=== PATIENT | female | born 1980 | race Caucasian/White ===

== ENCOUNTER 2020-02-16 00:44 | Outpatient (CLI) | payer BC, SELFPAY ==
[2020-02-16 17:26] LABS: SARS-CoV-2 RNA PCR Negative
== END 2020-02-16 00:45 | disposition home or self-care (01) ==
LOC: ANHCOVIDDT 00:44
PROVIDERS: PCP Family Medicine; Visit Provider Student in an Organized Health Care Education/Training Program
DX: Z01.812 Encounter for preprocedural laboratory examination (principal); Z20.828 Contact with and (suspected) exposure to other viral communicable diseases
CPT/HCPCS: 87635; C9803; U0003

== ENCOUNTER 2020-02-16 09:02 | Outpatient (CLI) | payer BC, SELFPAY ==
--- NOTE | 2020-02-16 | ECG_ITS ---
Measurements Intervals [place] Rate: 74 P: 4 PA: 151 QRS: 50 QRSD: 89 T: 42 QT: 382 QTc: 424 Interpretive Statements SINUS RHYTHM DELAYED PRECORDIAL R/S TRANSITION BASELINE ARTIFACT- I, II, III BORDERLINE ECG Electronically Signed On 02-16-2020 10:12:53 CDT by Ascencion Adame D.O.
[2020-02-16 10:07] LABS: Hematocrit 38.6 % (37.0-47.0)
== END 2020-02-16 09:03 | disposition home or self-care (01) ==
LOC: ANHLAB 09:03
PROVIDERS: PCP Family Medicine; Visit Provider Student in an Organized Health Care Education/Training Program
DX: N93.9 Abnormal uterine and vaginal bleeding, unspecified (principal); Z01.818 Encounter for other preprocedural examination; R94.31 Abnormal electrocardiogram [ECG] [EKG]
CPT/HCPCS: 36415; 85014; 85018; 93005

== ENCOUNTER 2020-02-18 01:03 | Day surgery (SDC) | payer BC, SELFPAY ==
[2020-02-11 15:38] VITALS: BMI 31.8
[2020-02-18 10:00] VITALS: BP 137/88; PULSE 72; RESP 18; TEMP 36.4; O2SAT 97
--- NOTE | 2020-02-18 10:00 | PM.IMHP ---
H&P: HPI History of Present Illness Date/Time: 02/18/20 10:00 Chief complaint: irregular bleeding, uterine polyp Narrative: Daxa Downey is a 39 year old female who presents for hysteroscopy D&C for AUB. Pt initially presented with prolonged menses lasting over 2 weeks. She states her bleeding was heavy requiring a tampon change every 2 hours. Pelvic US revealed concern for possible endometrial polyp. Pt opted for surgical management for AUB via D&C. Review of Systems Cardiovascular: Cardiovascular: Denies chest pain, Denies leg edema, Denies palpitations, Denies dyspnea and Denies dyspnea on exertion Respiratory: Respiratory: Denies cough, Denies dyspnea and Denies dyspnea on exertion Gastrointestinal: Gastrointestinal: Denies abdominal pain, Denies constipation, Denies diarrhea, Denies nausea and Denies vomiting Genitourinary: Genitourinary: Denies hematuria, Denies urinary frequency, Denies dysuria, Denies pelvic pain, Denies urinary incontinence and Denies vaginal discharge Neurologic: Reports system reviewed and no additional complaints, except as documented Psychiatric: Psychiatric: Reports no additional psychiatric complaints Endocrine: Endocrine: Denies palpitations [facility] Social History Social History (System 02/11/20 @ 17:05 by Keiry Esposito) Smoking packs per day: 1 Smoking cigarettes per day: 20.0 Years smoked: 15 Smoking pack-years: 15.00 Smoking status: Current every day smoker Tobacco type: cigarettes Alcohol intake: current Drinks per week: 2 Spiritual care concerns: No Meds Home Medications and Allergies Home Medications Medication Instructions Recorded Confirmed Type lisinopril 10 mg PO DAILY 02/11/20 02/11/20 History omeprazole 40 mg PO DAILY 02/11/20 02/11/20 History Allergies Allergy/AdvReac Type Severity Reaction Status Date / Time No Known Allergies Allergy Verified 02/11/20 17:05 Exam Const: General: no acute distress Eyes: EOM: EOMs intact bilaterally Neck: Neck: supple Thyroid: thyroid normal Chest: Breast/axilla inspection: normal inspection of the breasts Breast/axilla palpation: normal palpation of the breasts, normal palpation of the axillae and no axillary lymphadenopathy Resp: Effort & Inspection: normal respiratory effort Auscultation: clear to auscultation bilaterally Cardio: Rate: regular rate Rhythm: regular rhythm GI: Inspection: non-distended GI Palp: Yes Soft to palpation, No Tenderness to palpation present (GI) and No Guarding due to palpation present (GI) Auscultation: normal bowel sounds : General: No bladder normal to palpation External Female Exam: normal external appearance Speculum Exam - Vagina: normal vaginal discharge and No vaginal bleeding Speculum Exam - Cervix: nontender Bimanual exam- vagina & uterus: No bladder normal to palpation and No Cervical tenderness present OB/external & speculum: No vaginal bleeding Skin: General skin exam: normal color and no rashes or lesions noted Neuro: Cognition (Neuro): normal cognition Speech: normal speech Extrem: General: normal to inspection and no edema Psych: Mental Status: mental status grossly normal Affect: normal affect Assessment and Plan Assessment and plan (1) Uterine polyp: Code(s): N84.0 - Polyp of corpus uteri Status: Acute Assessment and Plan: Pt presented with AUB pelvic US revealed a hyperechoic structure within the EMC measuring [id number] suspicious for an endometrial polyp management options discussed with patient including risks and benefits of each pt opted for surgical management via D&C
--- NOTE | 2020-02-18 10:04 | WPDHPUPDATE1 ---
History and Physical Update Update Date/Time: 02/18/20 10:04 History and Physical has been reviewed, including an updated exam of the patient. There are NO changes in the patient's condition. Risks, benefits, and alternatives have been discussed and questions answered. Patient agrees to proceed with procedure.
[2020-02-18] MEDS: ACETAMINOPHEN 500 MG TABLET 1000 MG PO (10:36)
[2020-02-18] MEDS: LACTATED RINGERS 1,000 ML 30 ML IV CONT (10:36)
--- NOTE | 2020-02-18 10:55 | WPDANESEPPF ---
Anes - Initial Pre Proc Eval Procedure: Operation Date: 02/18/20 12:00 Proposed Procedures p Hysteroscopy, Dilation and Curettage with Myosure - Sathish Freed MD Date/Time: 02/18/20 10:55 Surgeon: Sathish Freed MD Pre Op Diagnosis: irregular bleeding, uterine polyp Patient Data Age: 39 Gender: F Height: 5 ft 3 in Weight: 81.9 kg Last Vital Signs Temp 36.4 C L 02/18/20 10:00 Pulse 72 02/18/20 10:00 Resp 18 02/18/20 10:00 BP 137/88 02/18/20 10:00 Pulse Ox 97 02/18/20 10:00 Allergies Allergy/AdvReac Type Severity Reaction Status Date / Time No Known Allergies Allergy Verified 02/18/20 10:46 Home Medications Medication Instructions Recorded Confirmed Type lisinopril 10 mg PO DAILY 02/11/20 02/18/20 History omeprazole 40 mg PO DAILY 02/11/20 02/18/20 History Patient hx anesthesia problems: none Family hx anesthesia problems: none PMFSH Past Medical History Medical History GERD (gastroesophageal reflux disease) Hypertension ASHLEY (obstructive sleep apnea) Social History Social History Smoking packs per day: 1 Smoking cigarettes per day: 20.0 Years smoked: 15 Smoking pack-years: 15.00 Smoking status: Current every day smoker Tobacco type: cigarettes Alcohol intake: current Drinks per week: 2 Spiritual care concerns: No Anes - Eval Final PreProcedure Day of Procedure 02/18/20 10:55 Patient weight: obese Heart: regular rate and rhythm Lungs: decreased breath sounds Airway: Mallampati scale class II Neurological: alert and oriented Last oral intake: >/= 8 hours ASA classification: III Emergent: no Anesthetic plan: proceed Anesthesia type and monitoring: general GIVS and standard monitoring Informed Consent: The patient's anesthetic plan and its attendant risks and benefits were discussed with the patient/family/POA. Questions were solicited and answers provided to the satisfaction of the patient/family/POA.
--- NOTE | 2020-02-18 12:22 | PM.PROC ---
Procedure Note - Detailed Date of procedure: 02/18/20 Pre-op diagnosis: irregular bleeding, uterine polyp Post-op diagnosis: same Procedure performed: Paracervical block hysteroscopy Dilation & curettage via myosure device Description of procedure: The patient was taken to the operating room and placed under general anesthesia. The patient was placed in dorsolithotomy position, prepped and draped in the usual sterile fashion. Sterile speculum was placed in the vagina, and the cervix was grasped with a tenaculum. A paracervical block was performed. The cervix was dilated. The hysteroscope was introduced. The cervical canal was visualized and the hysteroscope was passed into the uterine cavity under direct visualization. ? The endometrial lining was visualized.?The endometrial lining was noted to be globally overgrown. There was a focal area of overgrown endometrial tissue located at the left fundus near the tubal kiah, consitent with suspected polyp on US. The Myosure device was then used to remove area of tisse and sample the endometrial lining, restoring a normal appearing endometrial cavity. The tissue was sent to pathology. ? Hemostasis was noted and the procedure was terminated. All instruments were removed from the vagina. Instrument, sharp, and sponge counts were correct. Fluid deficit was noted to be 50 mL. ? The patient tolerated the procedure well. The patient was taken to the recovery area in stable condition. Anesthesia: GLMA Surgeon: Sathish Freed MD Estimated blood loss (mL): 25 Urine output (mL): 100 Drains: No Packing: No Pathology: yes (endometrial curettings ) Complications: No immediate complications Condition: stable Disposition: PACU Findings: globally thickened endometrium with a focal area of overgrown tissue in the left fundus. normal tubal ostia bilaterally
[2020-02-18 12:26] VITALS: BP 140/91; PULSE 64; RESP 16; O2SAT 99
[2020-02-18 13:00] VITALS: BP 158/94; PULSE 59; RESP 16
== END 2020-02-18 13:30 | disposition home or self-care (01) ==
PROVIDERS: PCP Family Medicine; Visit Provider Student in an Organized Health Care Education/Training Program
PROC: 0U5B8ZZ Destruction of Endometrium, Via Natural or Artificial Opening Endoscopic (ICD-10-PCS; CPT 58563; principal; 2020-02-18 12:00)
DX: N93.8 Other specified abnormal uterine and vaginal bleeding (principal); N84.0 Polyp of corpus uteri; F17.210 Nicotine dependence, cigarettes, uncomplicated; I10 Essential (primary) hypertension; K21.9 Gastro-esophageal reflux disease without esophagitis; G47.33 Obstructive sleep apnea (adult) (pediatric); E66.9 Obesity, unspecified; Z68.32 Body mass index [BMI] 32.0-32.9, adult
CPT/HCPCS: 58558; 88305; A9270; J2250; J2704; J3010; J7030; J7120